=== PATIENT | female | born 1960 | race Caucasian/White ===

== ENCOUNTER → 2016-06-04 | Outpatient (CLI) | payer OTHER, BC ==
[~2016-06-04] MED LIST: AMPH20CA3 PO; ATOR10TA82 PO; BUPRTAB PO; HYDR-5688 PO; KETO10TA PO; LEVO100T7 PO; LISI-461 PO; MULT-506 PO; OXYC-57 PO; TOPI50TA24 PO
[2016-06-04 17:57] LABS: BASO % 0.2 %; BASO ABS # 0.02 K/uL (0-0.2); COMPLETE YES; EOS % 1.2 %; HEMATOCRIT 41.6 % (37-47); IG% 0.2 %; LYMPH ABS # 3.01 K/uL (1.2-3.4); MEAN CELL VOLUME 88.3 fL (80-100); MEAN CORPUSCULAR HEMOGLOBIN 28.7 pg (25-34); MEAN CORPUSCULAR HGB CONC 32.5 g/dl (32-36); MEAN PLATELET VOLUME 10.2 fL (7.4-10.4); MONO % 5.7 %; NEUT % 61.7 %; PLATELET COUNT 286 K/uL (130-400); RED BLOOD COUNT 4.71 M/uL (4.2-5.4); WHITE BLOOD COUNT 9.72 K/uL (4.8-10.8)
[2016-06-04 18:33] LABS: BLOOD UREA NITROGEN 10 mg/dl (7-18); BUN/CREATININE RATIO 10.4 (10-20); CALCIUM 9.3 mg/dl (8.5-10.1); CARBON DIOXIDE 25 mmol/L (21-32); CHLORIDE 107 mmol/L (98-107); CREATININE 0.99 mg/dl (0.60-1.20); GLUCOSE 82 mg/dl (70-99); POTASSIUM 3.7 mmol/L (3.5-5.1); SODIUM 143 mmol/L (136-145)
== END | disposition home or self-care (01) ==
LOC: C.CPL 15:48
PROVIDERS: ATTEND Orthopaedic Surgery
DX: Z01.818 Encounter for other preprocedural examination (principal); M19.90 Unspecified osteoarthritis, unspecified site

== ENCOUNTER → 2016-06-13 | Day surgery (SDC) | payer OTHER, BC ==
[2016-06-10 13:55] VITALS: Ht 154.9 cm; Wt 66.8 kg
[~2016-06-13] VITALS: Ht 154.9 cm; Wt 66.8 kg
[~2016-06-13] MED LIST changes: -ATOR10TA82 PO; +ATOR10TA88 PO; +BUPIVACAINE/EPINEPHRINE 0.25% 1:200,000 30 ML VIAL ONE; +CEFAZOLIN 2000 MG/60 ML D5W IV SCH; +EpINEphrine INJ 1MG/ML AMP 1 MG/ML AMP ONE; +FENTANYL CITRATE INJ 50 MCG/1 ML 2 ML VIAL ONE; +HYDROCODONE/ACETAMOPHEN 5/325MG TAB PO PRN; +LACTATED RINGER'S 1000ML 1,000 ML IV SCH; +LIDO 2%/EPINEPHRINE 1:100000 20 ML VIAL INFIL ONE; +LIDOCAINE HCL 1% MPF 2 ML VIAL ONE; +MIDAZOLAM HCL 1 MG/ML 2ML VIAL ONE; +ONDANSETRON INJ 2 MG/ML 2 ML VIAL IV PRN; +ONDANSETRON INJ 2 MG/ML 2 ML VIAL ONE; +PROPOFOL IV EMULSION 10 MG/ML 20 ML VIAL IV ONE; +ROPIVACAINE 0.5% 5 MG/ML 30 ML VIAL ONE; +SODIUM CHLORIDE 0.9% 1000ML 1,000 ML IV SCH
--- NOTE | 2016-06-13 09:46 | History & Physical Bridge - [place] ---
H&P Re-Evaluation Bridge Note: I have examined the patient, reviewed the History & Physical and in the interval since the performance of the History & Physical I have noted the following changes of clinical significance: No changes noted
--- NOTE | 2016-06-13 11:56 | [facility] Post Operative Brief Note ---
Immediate Operative Summary Operative Date Jun 13, 2016. Pre-Operative Diagnosis Left Shoulder AC Joint Arthritis, Partial Rotator Cuff Tear Post-Operative Diagnosis same Procedure(s) Performed Left Shoulder Arthroscopy, Subacromial Decompression, Distal Clavicle Resection,Biceps Tenotomy Surgeon Dr. Crystal Wise Toll Testboard Worker Surgeon(s) Ramses Cheng PA-C Estimated Blood Loss 2CC Findings as above Specimens none Complication(s) None Disposition Recovery Room / PACU
[2016-06-13 11:59] VITALS: TEMP 36.4
--- NOTE | 2016-06-13 12:04 | Discharge Instructions-SurgCtr ---
Discharge Instructions Visit Reason for Visit: Left Shoulder Arthritis Of Acromioclavicular Jt Discharge Discharge Diagnosis / Problem: SAME ABOVE Discharge Goals Goal(s): Decrease discomfort, Improve function Activity Recommendations Activity Limitations: as noted below Lifting Limitations: until after follow-up appointment Exercise/Sports Limitations: until after follow-up appointment Driving or Machine Use: WHEN OUT OF THE SLING AND NOT ON NORCO Anesthesia . Post Anesthesia Instructions: If you have had General Anesthesia or IV Sedation: * Do not drive today. * Resume driving when surgeon permits. * Do not make important decisions or sign legal documents today. * Call surgeon for: 1. Temperature elevations greater than 101 degrees F. 2. Uncontrollable pain. 3. Excessive bleeding. 4. Persistent nausea and vomiting. 5. Medication intolerance (nausea, vomiting or rash). * For nausea and vomiting use only clear liquids such as: tea, soda, bouillon until nausea subsides, then gradually increase diet as tolerated. * If you have any concerns or questions, call your surgeon's office. If physician is unavailable and it is an emergency, call 911 or go to the nearest emergency room. . Instructions / Follow-Up Instructions / Follow-Up MEDICATIONS: * Resume previous medications unless instructed otherwise by your surgeon. * Always take pain medication on a full stomach or with food to avoid upset stomach. * Do not drink alcohol or drive while taking narcotics. * Ibuprofen or Tylenol may be taken if narcotic not needed. SPECIAL CARE INSTRUCTIONS: __ None _X_ Keep extremity elevated and iced x 48 hours; apply ice 20-30 minutes 8-10 times/day. May remove at night. _X_ Sling (WEAR NEEDED FOR COMFORT) __24 hrs/day __ Remove at night __ Shoulder Immobilizer __ 24 hrs/day __ Remove at night _X_ Dressing __ Maintain until seen in office, may shower with plastic over site _X_ Remove dressings in 24-48 hours and then may shower _X_ Cover incisions with band-aids after showering __ Do not remove steri-strips Call physician if chills or temperature rises above 102 degrees or pain unrelieved by prescribed pain medications at . . Diet Recommendations Home Diet: no limitations Procedures Procedures Performed: Left Shoulder Arthroscopy, Subacromial Decompression, Distal Clavicle Resection,Biceps Tenotomy Pending Studies Studies pending at discharge: no Medical Emergencies . Who to Call and When: Medical Emergencies: If at any time you feel your situation is an emergency, please call 911 immediately. . Non-Emergent Contact Non-Emergency issues call your: Primary Care Provider Call Non-Emergent contact if: you have a fever, temperature is above 101.5 . . "Provider Documentation" section prepared by Jona Cheng.
--- NOTE | 2016-06-13 12:16 | OPERATIVE REPORT ---
DATE OF OPERATION: 06/13/2016 PREOPERATIVE DIAGNOSIS: Severe external impingement, acromioclavicular joint arthritis and possible biceps pathology of the left shoulder. POSTOPERATIVE DIAGNOSIS: Severe external impingement, acromioclavicular joint arthritis and large superior labral tear. PROCEDURE: Left shoulder diagnostic arthroscopy with limited debridement, distal clavicle resection, acromioplasty and biceps tenotomy. SURGEON: Dr. Alexis Wise. MANAGER PUBLISHING: Ramses Cheng PA-C, whose assistance was necessary for positioning the arm and helping with instrumentation. ANESTHESIA: General with a left interscalene nerve block. COMPLICATIONS: None. CONDITION: Stable to PACU. INDICATIONS: Ciara is a pleasant 55-year-old female who injured her shoulder while at work. A resident fell, she was trying to lift him and she felt a pop in her shoulder. MRI and clinical examination were diagnostic for severe impingement, acromioclavicular joint arthritis and possible biceps pathology. After failing extensive conservative treatment, she elected to undergo arthroscopy. On 06/13/2016 she arrived at [facility] for the above procedure. She was seen in the preoperative holding area and the operative extremity was identified and signed. She was then given a preoperative antibiotic, taken back to the operating room, laid on the table in a supine position and put under general anesthesia. She was then put into the beachchair position. The left shoulder was prepped and draped in a sterile fashion. A time-out was done and the patient and operative extremity was properly identified. A scope was introduced in the posterior portal. Diagnostic arthroscopy showed no cartilage damage to the humeral head or the glenoid. The supraspinatus, infraspinatus, teres minor and subscapularis were checked and intact. The biceps tendon went through a normal sized biceps teagan mechanism, but was a little red on the dorsal aspect. There was a large superior labral tear. The anterior, inferior and posterior labrum were intact. An anterior portal was made. A shaver was used to do a limited debridement of the intraarticular structures and the biceps tendon was arthroscopically tenotomized. The scope was then put into the subacromial space. A lateral portal was made. A shaver was used to do a complete subacromial and subdeltoid bursectomy. An ablator was used to tease the coracoacromial ligament off the undersurface of the acromion and a 5-0 heidi was used to complete an acromioplasty of a very large Bigliani type 3 acromion. A shaver was used to remove any excess debris and the bursal side of the rotator cuff was examined extensively without evidence of tear. Attention was turned to the distal clavicle. Through the anterior portal, a shaver and ablator were used to skeletonize the distal clavicle. A 5-0 heidi was then used to resect the distal 7 mm from the clavicle. Complete resection was checked under direct visualization. A shaver was used to remove any excess debris. Final diagnostic arthroscopy showed no additional pathology. Arthroscopic instruments were removed from the shoulder. Portal sites were closed with 3-0 nylon. She was then placed in a soft dressing and a regular arm sling. She was then extubated, transferred to a litter and taken to the postanesthesia care unit in stable condition. She tolerated the procedure well. I attest to the content of the Intraoperative Record and any orders documented therein. Any exceptio ns are noted below.
--- NOTE | 2016-06-13 12:17 | Anesthesia Progress Nt - [facility] ---
Anesthesia Post Op Note Date & Time Jun 13, 2016 at 12:16 Vital Signs Pain Intensity: 0 Vital Signs Past 12 Hours Date Time Temp Pulse Resp B/P Pulse Ox O2 Delivery O2 Flow Rate FiO2 06/13/16 11:59 36.4 67 16 98/66 100 Room Air 06/13/16 11:02 18 06/13/16 11:01 89 06/13/16 11:01 88 29 100 06/13/16 10:58 118/74 06/13/16 10:56 76 15 100 06/13/16 10:56 76 06/13/16 10:53 112/79 06/13/16 10:51 84 06/13/16 10:51 83 26 100 06/13/16 10:49 133/76 06/13/16 10:47 132/90 06/13/16 10:46 74 06/13/16 10:46 74 0 100 06/13/16 08:50 36.2 70 20 109/82 100 Room Air Notes Mental Status: alert / awake / arousable, participated in evaluation Pt Amnestic to Procedure: Yes Nausea / Vomiting: adequately controlled Pain: adequately controlled Airway Patency, RR, SpO2: stable & adequate BP & HR: stable & adequate Hydration State: stable & adequate Anesthetic Complications: no major complications apparent
[2016-06-13 12:25] VITALS: BP 115/75; PULSE 54; O2SAT 100
== END | disposition home or self-care (01) ==
LOC: X.SURG 08:30
PROVIDERS: ATTEND Orthopaedic Surgery
DX: S43.432A Superior glenoid labrum lesion of left shoulder, initial encounter (principal); M75.42 Impingement syndrome of left shoulder; M19.012 Primary osteoarthritis, left shoulder; W04.XXXA Fall while being carried or supported by other persons, initial encounter; Y93.89 Activity, other specified; Y92.89 Other specified places as the place of occurrence of the external cause; Y99.0 Civilian activity done for income or pay